=== PATIENT | female | born 1980 | race Caucasian/White ===

== ENCOUNTER 2020-02-29 13:11 | Emergency (ER) | payer MEDICAID ==
[~2020-02-29] VITALS: Ht 154.9 cm; Wt 85.7 kg
[2020-02-29 13:20] VITALS: Ht 154.9 cm; Wt 85.7 kg
[2020-02-29 14:59] LABS: BASOPHIL % 0.5 % (0-2); PLATELET COUNT 306 x10^3mcL (130-400); RED CELL DISTRIBUTION WIDTH 13.1 % (11.5-14.5)
[2020-02-29 15:11] LABS: microscopic required? YES; urine erythrocyte 1+ (NEGATIVE)
[2020-02-29 15:54] LABS: CALCIUM 8.7 mg/dL (8.5-10.1); CARBON DIOXIDE 28.2 mmol/L (21-32); CHLORIDE SERUM 102 mmol/L (98-107); CREATININE SERUM 0.7 mg/dL (0.6-1.0); GFR1 > 60 mL/min; GLUCOSE SERUM 98 mg/dL (74-106); POTASSIUM SERUM 3.5 mmol/L (3.5-5.1); SODIUM SERUM 138 mmol/L (136-145)
[2020-02-29 15:58] LABS: ALKALINE PHOSPHATASE 66 U/L (46-116); ALT/SGPT 30 U/L (14-59); AMYLASE 35 U/L (25-115); AST/SGOT 15 U/L (15-37); BILIRUBIN TOTAL 0.4 mg/dL (0.20-1.00); LIPASE 147 IU/L (73-393); TOTAL PROTEIN, SERUM 6.5 g/dL (6.4-8.2)
[2020-02-29 15:59] LABS: ALBUMIN 3.3 g/dL (3.4-5.0)
[2020-02-29 16:04] VITALS: BP 99/70
== END 2020-02-29 16:04 | disposition home or self-care (01) ==
LOC: ED 13:11
PROVIDERS: Specialist
DX: N83.202 Unspecified ovarian cyst, left side (principal); Z90.710 Acquired absence of both cervix and uterus
CPT/HCPCS: 36415; J1885